=== PATIENT | female | born 1960 | race Caucasian/White ===

== ENCOUNTER 2018-03-03 13:06 | Emergency (ER) | payer OTHER ==
[~2018-03-03] VITALS: Ht 152.4 cm; Wt 113.4 kg
--- NOTE | 2018-03-03 15:00 | RADIOLOGY REPORT ---
EXAMINATION: XR TOES, RIGHT CLINICAL INFORMATION: Pain. Injury. COMPARISON: None TECHNIQUE: 3 views of the right toes were obtained. FINDINGS: There is a bandage around the toes. There is fracture of the proximal phalanges of both the fourth and fifth toe. Both fractures are intra-articular involving the proximal shaft at the medial side of the bone extending into the articular surface of the proximal phalanges at the MTP joint. Both fractures have a fracture fragment measuring about 5 mm that are slightly displaced. There is a small plantar calcaneal spur. 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 There is orthopedic hardware in the ankle with orthopedic plate and screw at lateral malleolus and 2 screws present through the medial malleolus IMPRESSION: Intra-articular fracture of the proximal phalange of the fourth toe and the fifth toe involving the MTP joints.
--- NOTE | 2018-03-03 15:20 | ED ANKLE/FOOT INJURY COMPLAINT ---
History of Present Illness General Chief Complaint: Foot or Ankle Injury Stated Complaint: BIBA ?BROKEN TOES Source: patient Exam Limitations: no limitations Vital Signs & Intake/Output Vital Signs & Intake/Output Vital Signs Date Time Temp Pulse Resp B/P B/P Pulse O2 O2 Flow FiO2 Mean Ox Delivery Rate 03/03 1630 97.8 106 18 142/73 99 Room Air 03/03 1343 97.0 88 18 120/80 96 Room Air Allergies Coded Allergies: NSAIDS (Non-Steroidal Anti-Inflamma (Intermediate, U 03/03/18) Reconcile Medications Cephalexin (Keflex) 500 MG CAPSULE 1 CAP PO TID prophylaxis Oxycodone HCl/Acetaminophen (Percocet 5-325 MG Tablet) 5 MG-325 MG TABLET 1 TAB PO Q6P PRN pain Take 1 every 6 hours for breakthrough pain Triage Note: 57F WAS PLAYING WITH HER CAT AND SHE FLIPPED OVER AND LANDED ON HER TOES, CONCERNED SHE BROKE 4TH AND 5TH RIGHT METATARSALS. Triage Nurses Notes Reviewed? yes Duration: hour(s): Timing: single episode today Severity: moderate Pain/Injury Location: Right: 4th toe, 5th toe. Method of Injury: fall No Modifying Factors: none HPI: 57 year-old female presenting with right lateral foot pain after a fall. Patient was playing with her cat and tripped falling backwards causing a hyper plantar flexion and rotational injury. Patient has a small laceration in between the webbing of her fourth and fifth digits. There is diffuse swelling to the lateral foot and tenderness over the proximal phalanx and distal metatarsals of both the fourth and fifth digits. (NIMISHA LINDO MD) Past History Travel History Traveled to [place] past 21 day No Medical History Any Pertinent Medical History? none Neurological: NONE EENT: NONE Cardiovascular: NONE Respiratory: NONE Hepatic: FATTY LIVER Renal: NONE Musculoskeletal: NONE Psychiatric: NONE Endocrine: LUPUS Surgical History Surgical History: non-contributory Psychosocial History What is your primary language Indian Tobacco Use: Refused to answer Family History Hx Contributory? No (NIMISHA LINDO MD) Review of Systems Review of Systems Constitutional: Reports: no symptoms. EENTM: Reports: no symptoms. Respiratory: Reports: no symptoms. Cardiovascular: Reports: no symptoms. GI: Reports: no symptoms. Genitourinary: Reports: no symptoms. Musculoskeletal: Reports: no symptoms. Skin: Reports: no symptoms. Neurological/Psychological: Reports: no symptoms. Hematologic/Endocrine: Reports: no symptoms. Immunologic/Allergic: Reports: no symptoms. All Other Systems: Reviewed and Negative (NIMISHA LINDO MD) Physical Exam Physical Exam General Appearance: well developed/nourished, mild distress Head: atraumatic Eyes: Bilateral: PERRL, EOMI. Ears, Nose, Throat: normal pharynx, normal ENT inspection, hearing grossly normal Neck: normal inspection, supple Cardiovascular/Respiratory: regular rate/rhythm Back: normal inspection Leg/Knee/Thigh Left: normal range of motion, normal inspection Foot Right: tenderness, abrasions/lacerations, There is mild swelling and tenderness to the lateral foot and point tenderness over the 4th and 5th toes and distal metatarsals. Sensation to fine touch preserved, ROM limited by pain. There are two superficial laceration in the interspaces between the 4th and 5th and 3rd and 4th digits. Plantar flexion and senation are intact. digits of the right foot. Neuro/Vascular: normal motor function, normal sensation Tendon: normal tendon function Psychiatric: awake, alert, oriented x 3 Skin: intact, normal color, warm/dry (NIMISHA LINDO MD) Progress Differential Diagnosis: fracture, Sprain, laceration, contusion, dislocation Plan of Care: Orders Procedure Date/time Status Durable Medical Equipment 03/03 1711 Active Foot XR, laceration repair Radiology Impression: fracture Comments: XR showing fractures to 4th and 5th proximal phalanges. Lacerations were loosely approximated, to prevent contamination and improve healing. Given these lacerations were in an area of high friction I felt partial closure was better than healing by secondary intention even though there are con commitment fractures. The lacerations were left loosely approximated. A post-op shoe was provided. Wound care instructions provided, with close return precautions for signs or symptoms of infection. Pt is to follow-up with podiatry. It was stressedt that Ms Cevallos needs to keep the area clean and observe frequently for signs of infection. (NIMISHA LINDO MD) Departure Departure Time of Disposition: 1727 Disposition: HOME OR SELF CARE Condition: Stable Clinical Impression Primary Impression: Foot laceration Qualifiers: Encounter type: initial encounter Laterality: right Qualified Code: S91.311A - Laceration without foreign body, right foot, initial encounter Secondary Impressions: Phalanx fracture, foot Qualifiers: Encounter type: initial encounter Toe: unspecified toe Fracture type: open Fracture alignment: displaced Laterality: right Qualified Code: S92.911B - Unspecified fracture of right toe(s), initial encounter for open fracture Referrals: Lonnie LION,Michael Biggs (PCP/Family) Additional Instructions: Keep your wounds clean. Inspect them twice daily for signs of infection. Apply bacitracin as instructed. Take oral antibiotics to prevent infection. See podiatry as soon as possible. Return for evaluation if you develop fever, pustular drainage, increased redness and swelling to the areas of your lacerations. Departure Forms: Customer Survey General Discharge Information Prescriptions: Current Visit Scripts Cephalexin (Keflex) 1 CAP PO TID #21 CAP Oxycodone HCl/Acetaminophen (Percocet 5-325 MG Tablet) 1 TAB PO Q6P PRN pain #15 TAB Take 1 every 6 hours for breakthrough pain (NIMISHA LINDO MD) Departure Comments I agree with the physician's documentation above. (Evin Albarran DO) Procedures Laceration/Wound Repair Laceration/Wound Repair: Wound Location: lower extremity Wound's Depth, Shape: irregular, superficial Wound Explored: clean, no foreign body removed, irrigated extensively Irrigated w/ Saline (ccs): 500 Betadine Prep? No Anesthesia: digit block, 1% lidocaine Volume Anesthetic (ccs): 7 Wound Repaired With: sutures Suture Size/Type: 4:0, nylon Number of Sutures: 7 Layer Closure? No Tetanus Status: up to date (NIMISHA LINDO MD)
[2018-03-03 16:30] VITALS: BP 142/73
[2018-03-03] MEDS ORDERED: KEFLEX500 M1 PO (17:32)
[2018-03-03] MEDS ORDERED: PERCOCET 5-3251 EACH PO (17:32)
== END 2018-03-03 17:51 ==
LOC: ERH 13:06
DX: S92.511A Displaced fracture of proximal phalanx of right lesser toe(s), initial encounter for closed fracture (principal); S91.114A Laceration without foreign body of right lesser toe(s) without damage to nail, initial encounter; W19.XXXA Unspecified fall, initial encounter; Y92.9 Unspecified place or not applicable; Y93.9 Activity, unspecified
CPT/HCPCS: 73660-RT; J2001

== ENCOUNTER 2018-03-13 10:43 | Emergency (ER) | payer OTHER ==
[~2018-03-13] VITALS: Ht 175.3 cm; Wt 113.4 kg
[~2018-03-13 10:43] MED LIST: KEFLEX500 M1 PO; PERCOCET 5-3251 EACH PO
--- NOTE | 2018-03-13 11:58 | ED ANIMAL BITE/WOUND CHECK ---
History of Present Illness General Chief Complaint: Foot or Ankle Injury Stated Complaint: BIBA FOOT INFECTION? Source: patient Exam Limitations: no limitations Vital Signs & Intake/Output Vital Signs & Intake/Output Vital Signs Date Time Temp Pulse Resp B/P B/P Pulse O2 O2 Flow FiO2 Mean Ox Delivery Rate 03/13 1215 97.0 80 18 135/72 97 Room Air Room Air 03/13 1047 96.8 83 18 145/71 96 Room Air Allergies Coded Allergies: NSAIDS (Non-Steroidal Anti-Inflamma (Intermediate, U 03/03/18) Reconcile Medications Cephalexin (Keflex) 500 MG CAPSULE 1 CAP PO TID prophylaxis Cephalexin (Keflex) 500 MG CAPSULE 1 CAP PO TID infection Oxycodone HCl/Acetaminophen (Percocet 5-325 MG Tablet) 5 MG-325 MG TABLET 1 TAB PO Q6P PRN pain Take 1 every 6 hours for breakthrough pain Triage Note: 57 Y/O FEMALE BIBA (TO TRIAGE) C/O ? INFECTED SUTURES TO R FOOT, BETWEEN 4TH-5TH TOES. PT STATES AREA IS RED AND PAINFUL. REPORTS DRAINAGE TO AREA. DENIES FEVERS Triage Nurses Notes Reviewed? yes HPI: 57-year-old female history of diabetes presents to emergency department requesting suture removal. Patient states she injured her foot a week and a half ago. She had a laceration repair done at that time where she had 7 stitches placed. She has been taking Keflex as prescribed. She did finish the Keflex 2 days ago. Last night she noticed the area looked a little red and is concerned it might be infected. She denies any fever or chills. No nausea. No discharge from the area. (Scott Macedo PA-C) Past History Travel History Traveled to [place] past 21 day No Medical History Any Pertinent Medical History? see below for history Neurological: NONE EENT: NONE Cardiovascular: NONE Respiratory: NONE Hepatic: FATTY LIVER Renal: NONE Musculoskeletal: NONE Psychiatric: NONE Endocrine: LUPUS Surgical History Surgical History: non-contributory Psychosocial History What is your primary language Persian Tobacco Use: Never used Family History Hx Contributory? No (Scott Macedo PA-C) Review of Systems Review of Systems Constitutional: Reports: no symptoms. EENTM: Reports: no symptoms. Respiratory: Reports: no symptoms. Cardiovascular: Reports: no symptoms. GI: Reports: no symptoms. Genitourinary: Reports: no symptoms. Musculoskeletal: Reports: no symptoms. Skin: Reports: see HPI. Neurological/Psychological: Reports: no symptoms. Hematologic/Endocrine: Reports: no symptoms. Immunologic/Allergic: Reports: no symptoms. All Other Systems: Reviewed and Negative (Scott Macedo PA-C) Physical Exam Physical Exam General Appearance: well developed/nourished, mild distress Head: atraumatic Eyes: Bilateral: PERRL, EOMI. Ears, Nose, Throat: normal pharynx, normal ENT inspection, hearing grossly normal Neck: normal inspection, supple Respiratory: normal breath sounds Cardiovascular: regular rate/rhythm Gastrointestinal: soft, non-tender Back: normal inspection Extremities: normal range of motion Neurologic/Psych: awake, alert, oriented x 3, normal mood/affect Skin: Laceration to right 4th and 5th digits in the webspace. Sutures removed. 5th digit is mildly erythematous. No lymphangitis. No surrounding erythema. Lymphatic: no anterior cervical meredith (Scott Macedo PA-C) Progress Differential Diagnosis: abscess, cellulitis, joint infection, tenosysnovitis, osteomyelitis, diabetic foot infection Plan of Care: Patient had a total of 7 sutures removed. Area was cleansed with normal saline. a small area did open after suture removal due to the location of where the sutures were placed. Patient overall tolerated procedure well. Her right fifth digit is mildly erythematous so will start her on Keflex as she finished 2 days ago and noticed increased redness last night. I encouraged her to follow-up with her primary care doctor within 2 days and return immediately with any new or worsening symptoms. She is in agreement with plan of care. (Scott Macedo PA-C) Departure Departure Disposition: HOME OR SELF CARE Condition: Stable Clinical Impression Primary Impression: Encounter for removal of sutures Secondary Impressions: Visit for wound check Referrals: Lonnie LION,Michael Biggs (PCP/Family) Additional Instructions: Keep area clean and dry. Start antibiotics as prescribed. Follow-up with your primary care doctor within 2 days for wound check. Continue using bacitracin and change bandage daily. Return immediately if you develop any worsening redness, fever or any signs of infection as discussed. Departure Forms: Customer Survey General Discharge Information Prescriptions: Current Visit Scripts Cephalexin (Keflex) 1 CAP PO TID #30 CAP (Scott Macedo PA-C) PA/DATABASE REPORT WRITER Co-Sign Statement Statement: ED Attending supervision documentation- I saw and evaluated the patient. I have also reviewed all the pertinent lab results and diagnostic results. I agree with the findings and the plan of care as documented in the PA's/DATABASE REPORT WRITER's documentation. x I have reviewed the ED Record and agree with the PA's/DATABASE REPORT WRITER's documentation. [] Additions or exceptions (if any) to the PAs/DATABASE REPORT WRITER's note and plan are summarized below: [] (Carlita LION,M[place]ina)
[2018-03-13] MEDS ORDERED: KEFLEX500 M1 PO (12:00)
[2018-03-13 12:15] VITALS: BP 135/72
== END 2018-03-13 12:16 ==
LOC: ERH 10:43
DX: Z48.00 Encounter for change or removal of nonsurgical wound dressing (principal)